=== PATIENT | male | born 1975 | race African-American/Black ===

== ENCOUNTER 2023-02-26 22:03 | Emergency (ER) | payer MEDICAID, OTHER ==
[~2023-02-26] VITALS: Ht 175.3 cm; Wt 79.5 kg
[2023-02-27] MEDS ORDERED: HYDROmorphone HCL 2 MG/ML VL/or syr IV ONE (01:45)
[2023-02-27 02:44] VITALS: BP 167/113
[2023-02-27] MEDS ORDERED: HYDROmorphone HCL 2 MG/ML VL/or syr IM ONE (02:45)
== END 2023-02-27 04:07 | disposition home or self-care (01) ==
LOC: EDBD 22:03 → ER 22:03
DX: S93.402A Sprain of unspecified ligament of left ankle, initial encounter (principal); S86.912A Strain of unspecified muscle(s) and tendon(s) at lower leg level, left leg, initial encounter; M54.2 Cervicalgia; V43.62XA Car passenger injured in collision with other type car in traffic accident, initial encounter; Y93.89 Activity, other specified; Y92.89 Other specified places as the place of occurrence of the external cause; Y99.8 Other external cause status
CPT/HCPCS: 29515; 70450; 70486; 72125; 73560; 73590; 96372; 99285; J1170; 93005